=== PATIENT | male | born 1975 | race Asian ===

== ENCOUNTER 2017-07-13 10:45 | Emergency (ER) | payer BC ==
[~2017-07-13] VITALS: Ht 170.2 cm; Wt 93.0 kg
[2017-07-13 11:27] LABS: BASOPHILS # (AUTO) 0.2 /CMM (0.0-0.2); BASOPHILS % (AUTO) 1.9 % (0.0-2.0); EOSINOPHILS % (AUTO) 0.1 % (0.0-6.0); HEMATOCRIT 47 % (39-51); HEMOGLOBIN 16.2 g/dL (13.5-17.5); LYMPHOCYTES # (AUTO) 1.5 /CMM (0.8-4.8); LYMPHOCYTES % (AUTO) 16.8 % (20.0-44.0); MEAN CORPUSCULAR HEMOGLOBIN 30 PG (26.0-33.0); MEAN CORPUSCULAR HGB CONC 35 g/dl (31.0-36.0); MEAN CORPUSCULAR VOLUME 86 fL (80-96); MONOCYTES # (AUTO) 0.5 /CMM (0.1-1.30); MONOCYTES % (AUTO) 5.3 % (2.0-12.0); NEUTROPHILS # (AUTO) 6.6 /CMM (1.8-8.9); NEUTROPHILS % (AUTO) 75.9 % (43.0-81.0); PLATELET COUNT (AUTO) 291 /CMM (150-450); RDW COEFFICIENT OF VARIATION 11.7 (11.5-15.0); RED BLOOD CELL COUNT(AUTO) 5.47 MIL/uL (4.5-6.0); WHITE BLOOD COUNT (AUTO) 8.8 K/uL (4.3-11.0)
[2017-07-13] MEDS ORDERED: IV NS 0.9% 1,000 ML BAG IV ONE (11:30)
[2017-07-13] MEDS ORDERED: ATROPINE SULFATE INJ 1 MG/ML VIAL ONE (11:34)
[2017-07-13 11:38] LABS: CALCIUM, SERUM 9.3 mg/dL (8.5-10.1); CREATININE 1.2 mg/dL (0.6-1.3); POTASSIUM 4.1 mmol/L (3.5-5.1)
[2017-07-13 11:44] LABS: ALBUMIN 3.9 g/dL (3.4-5.0); BILIRUBIN,TOTAL 0.7 mg/dL (0.2-1.0); TOTAL PROTEIN, SERUM 8.6 g/dL (6.4-8.2)
[2017-07-13 11:45] LABS: INR 0.91 (0.87-1.13); PROTHROMBIN TIME 9.5 SECS (9.5-12.7)
[2017-07-13] MEDS ORDERED: ATROPINE SULFATE INJ 1 MG/ML VIAL IV ONE (12:00)
[2017-07-13 12:23] LABS: THYROID STIMULATING HORMONE 0.37 uIU/mL (0.358-3.74)
--- NOTE | 2017-07-13 13:01 | NUR ---
Patient discharged to home in stable condition. Written and verbal after care instructions given. Patient verbalizes understanding of instruction.
--- NOTE | 2017-07-13 13:01 | NUR ---
IV removed. Catheter intact and site benign. Pressure and 4x4 applied to site. No bleeding noted.
[2017-07-13 13:02] VITALS: BP 129/70
== END 2017-07-13 13:03 | disposition home or self-care (01) ==
LOC: ER 10:56
DX: R00.1 Bradycardia, unspecified (principal); I45.10 Unspecified right bundle-branch block; R11.0 Nausea
CPT/HCPCS: 36415; 80053; 84443; 84484; 85025; 85730; 93005; 96361; 96374; 99285; A4606; J0461; J7030; Z7610